=== PATIENT | female | born 1950 | race Caucasian/White ===

== ENCOUNTER → 2017-01-14 | Outpatient (CLI) | payer BC ==
--- OUTSIDE RECORDS SUMMARY | 2017-01-14 09:34 | XMS REPORT | Continuity of Care Document ---
Author Author [facility] Organization [facility] Address Unknown Phone Unavailable Allergies Medications Problems Date Dx Coded Attending Type Code Diagnosis Diagnosed By 10/19/2014 CARYN SHERIDAN DOLINE S Ot 244.9 10/19/2014 CARYN SHERIDAN DOLINE S Ot 272.4 10/19/2014 CARYN SHERIDAN DOLINE S Ot 780.79 10/19/2014 CARYN SHERIDAN DOLINE S Ot V76.12 04/29/2015 JAVIER CARLTON Ot 244.9 08/30/2015 Ot 719.46 08/30/2015 Ot V76.12 08/30/2015 Ot 244.9 08/30/2015 Ot 244.9 08/30/2015 Ot 272.4 08/30/2015 Ot 733.00 08/30/2015 Ot 780.79 08/30/2015 Ot V76.12 08/30/2015 Ot 244.9 08/30/2015 Ot 272.4 08/30/2015 Ot 780.79 08/30/2015 Ot 244.9 08/30/2015 Ot 272.4 08/30/2015 Ot V70.0 08/30/2015 Ot V72.62 08/30/2015 Ot V76.12 08/30/2015 ORENDCARYN RUBIN DOLINE S Ot 244.9 08/30/2015 ORENDER MARYSE KELLYNAYA S Ot 272.4 08/30/2015 ORENDMARYSE RUBIN DOQUELINE S Ot 780.79 08/30/2015 ORENDER MARYSE KELLYNAYA S Ot 244.9 08/30/2015 JOSINDMARYSE RUBIN DOQUELINE S Ot 272.4 08/30/2015 CARYN SHERIDAN DOLINE S Ot V76.12 08/30/2015 JOSINDCARYN RUBIN DOLINE S Ot 244.9 08/30/2015 JOSINDCARYN RUBIN DOLINE S Ot 272.4 08/30/2015 ORENDER DO, NAYA S Ot 244.9 08/30/2015 ORENDER DO, NAYA S Ot 272.4 08/30/2015 ORENDER DO, NAYA S Ot 780.79 08/30/2015 ORENDER DO, NAYA S Ot V76.12 08/30/2015 JAVIER CARLTON Ot 244.9 09/14/2015 ORENDER DO, NAYA S Ot E03.9 09/14/2015 ORENDER DO, NAYA S Ot E78.5 09/14/2015 ORENDER DO, NAYA S Ot Z12.31 09/15/2015 ORENDER DO, NAYA S Ot E03.9 09/15/2015 ORENDER DO, NAYA S Ot E78.5 09/15/2015 ORENDER DO, NAYA S Ot Z12.31 10/05/2015 ORENDER DO, NAYA S Ot E03.9 10/05/2015 ORENDER DO, NAYA S Ot E78.5 10/05/2015 ORENDER DO, NAYA S Ot Z12.31 01/18/2016 ORENDER DO, NAYA S Ot E03.9 01/18/2016 ORENDER DO, NAYA S Ot E78.2 01/18/2016 ORENDER DO, NAYA S Ot R53.1 01/30/2016 ORENDER DO, NAYA S Ot E03.9 01/30/2016 ORENDER DO, NAYA S Ot E78.2 01/30/2016 ORENDER DO, NAYA S Ot R53.1 07/11/2016 ORENDER DO, NAYA S Ot E03.9 HYPOTHYROIDISM, UNSPECIFIED 07/11/2016 ORENDER DO, NAYA S Ot E78.5 HYPERLIPIDEMIA, UNSPECIFIED 07/25/2016 ORENDER DO, NAYA S Ot E03.9 HYPOTHYROIDISM, UNSPECIFIED 07/25/2016 ORENDER DO, NAYA S Ot E78.5 HYPERLIPIDEMIA, UNSPECIFIED 09/10/2016 Ot 244.9 HYPOTHYROIDISM NOS 09/10/2016 Ot 244.9 HYPOTHYROIDISM NOS 09/10/2016 Ot 272.4 HYPERLIPIDEMIA NEC/NOS 09/10/2016 Ot 733.00 OSTEOPOROSIS NOS 09/10/2016 Ot 780.79 OTH MALAISE FATIGUE 09/10/2016 Ot V76.12 OTH SCREEN MAMMO-MALIGN NEOPLASM OF ALIZA 09/10/2016 Ot 244.9 HYPOTHYROIDISM NOS 09/10/2016 Ot 272.4 HYPERLIPIDEMIA NEC/NOS 09/10/2016 Ot 780.79 OTH MALAISE FATIGUE 09/10/2016 Ot 244.9 HYPOTHYROIDISM NOS 09/10/2016 Ot 272.4 HYPERLIPIDEMIA NEC/NOS 09/10/2016 Ot V70.0 ROUTINE MEDICAL EXAM 09/10/2016 Ot V72.62 LAB EXAM ORDERED PART OF A ROUTINE GE 09/10/2016 Ot V76.12 OTH SCREEN MAMMO-MALIGN NEOPLASM OF ALIZA 09/10/2016 ORENDER DO, NAYA S Ot 244.9 HYPOTHYROIDISM NOS 09/10/2016 ORENDER DO, NAYA S Ot 272.4 HYPERLIPIDEMIA NEC/NOS 09/10/2016 ORENDER DO, NAYA S Ot 780.79 OTH MALAISE FATIGUE 09/10/2016 ORENDER DO, NAYA S Ot 244.9 HYPOTHYROIDISM NOS 09/10/2016 ORENDER DO, NAYA S Ot 272.4 HYPERLIPIDEMIA NEC/NOS 09/10/2016 ORENDER DO, NAYA S Ot V76.12 OTH SCREEN MAMMO-MALIGN NEOPLASM OF ALIZA 09/10/2016 ORENDER DO, NAYA S Ot 244.9 HYPOTHYROIDISM NOS 09/10/2016 ORENDER DO, NAYA S Ot 272.4 HYPERLIPIDEMIA NEC/NOS 09/10/2016 ORENDER DO, NAYA S Ot 244.9 HYPOTHYROIDISM NOS 09/10/2016 ORENDER DO, NAYA S Ot 272.4 HYPERLIPIDEMIA NEC/NOS 09/10/2016 ORENDER DO, NAYA S Ot 780.79 OTH MALAISE FATIGUE 09/10/2016 ORENDER DO, NAYA S Ot V76.12 OTH SCREEN MAMMO-MALIGN NEOPLASM OF ALIZA 09/10/2016 JAVIER CARLTON Ot 244.9 HYPOTHYROIDISM NOS 09/10/2016 ORENDER DO, NAYA S Ot E03.9 HYPOTHYROIDISM, UNSPECIFIED 09/10/2016 ORENDER DO, NAYA S Ot E78.5 HYPERLIPIDEMIA, UNSPECIFIED 09/10/2016 JOSINDER DO, NAYA S Ot Z12.31 ENCNTR SCREEN MAMMOGRAM FOR MALIGNANT NE 09/10/2016 JOSINDER DO, NAYA S Ot E03.9 HYPOTHYROIDISM, UNSPECIFIED 09/10/2016 JOSINDER DO, NAYA S Ot E78.2 MIXED HYPERLIPIDEMIA 09/10/2016 JOSINDER DO, NAYA S Ot R53.1 WEAKNESS 09/10/2016 JOSINDER DO, NAYA S Ot E03.9 HYPOTHYROIDISM, UNSPECIFIED 09/10/2016 JOSINDER DO, NAYA S Ot E78.5 HYPERLIPIDEMIA, UNSPECIFIED 09/11/2016 JOSINDER DO, NAYA S Ot Z12.31 ENCNTR SCREEN MAMMOGRAM FOR MALIGNANT NE 09/21/2016 JOSINDER DO, NAYA S Ot Z12.31 ENCNTR SCREEN MAMMOGRAM FOR MALIGNANT NE 09/25/2016 Ot 244.9 HYPOTHYROIDISM NOS 09/25/2016 Ot 272.4 HYPERLIPIDEMIA NEC/NOS 09/25/2016 Ot 733.00 OSTEOPOROSIS NOS 09/25/2016 Ot 780.79 OTH MALAISE FATIGUE 09/25/2016 Ot V76.12 OTH SCREEN MAMMO-MALIGN NEOPLASM OF ALIZA 09/25/2016 Ot 244.9 HYPOTHYROIDISM NOS 09/25/2016 Ot 272.4 HYPERLIPIDEMIA NEC/NOS 09/25/2016 Ot 780.79 OTH MALAISE FATIGUE 09/25/2016 Ot 244.9 HYPOTHYROIDISM NOS 09/25/2016 Ot 272.4 HYPERLIPIDEMIA NEC/NOS 09/25/2016 Ot V70.0 ROUTINE MEDICAL EXAM 09/25/2016 Ot V72.62 LAB EXAM ORDERED PART OF A ROUTINE GE 09/25/2016 Ot V76.12 OTH SCREEN MAMMO-MALIGN NEOPLASM OF ALIZA 09/25/2016 JOSINDER DO, NAYA S Ot 244.9 HYPOTHYROIDISM NOS 09/25/2016 JOSINDER DO, NAYA S Ot 272.4 HYPERLIPIDEMIA NEC/NOS 09/25/2016 JOSINDER DO, NAYA S Ot 780.79 OTH MALAISE FATIGUE 09/25/2016 JOSINDER DO, NAYA S Ot 244.9 HYPOTHYROIDISM NOS 09/25/2016 ORENDER DO, NAYA S Ot 272.4 HYPERLIPIDEMIA NEC/NOS 09/25/2016 ORENDER DO, NAYA S Ot V76.12 OTH SCREEN MAMMO-MALIGN NEOPLASM OF ALIZA 09/25/2016 ORENDER DO, NAYA S Ot 244.9 HYPOTHYROIDISM NOS 09/25/2016 ORENDER DO, NAYA S Ot 272.4 HYPERLIPIDEMIA NEC/NOS 09/25/2016 ORENDER DO, NAYA S Ot 244.9 HYPOTHYROIDISM NOS 09/25/2016 ORENDER DO, NAYA S Ot 272.4 HYPERLIPIDEMIA NEC/NOS 09/25/2016 ORENDER DO, NAYA S Ot 780.79 OTH MALAISE FATIGUE 09/25/2016 ORENDER DO, NAYA S Ot V76.12 OTH SCREEN MAMMO-MALIGN NEOPLASM OF ALIZA 09/25/2016 JAVIER CARLTON Ot 244.9 HYPOTHYROIDISM NOS 10/31/2016 Ot 244.9 HYPOTHYROIDISM NOS 10/31/2016 Ot 272.4 HYPERLIPIDEMIA NEC/NOS 10/31/2016 Ot 733.00 OSTEOPOROSIS NOS 10/31/2016 Ot 780.79 OTH MALAISE FATIGUE 10/31/2016 Ot V76.12 OTH SCREEN MAMMO-MALIGN NEOPLASM OF ALIZA 10/31/2016 Ot 244.9 HYPOTHYROIDISM NOS 10/31/2016 Ot 272.4 HYPERLIPIDEMIA NEC/NOS 10/31/2016 Ot 780.79 OTH MALAISE FATIGUE 10/31/2016 Ot 244.9 HYPOTHYROIDISM NOS 10/31/2016 Ot 272.4 HYPERLIPIDEMIA NEC/NOS 10/31/2016 Ot V70.0 ROUTINE MEDICAL EXAM 10/31/2016 Ot V72.62 LAB EXAM ORDERED PART OF A ROUTINE GE 10/31/2016 Ot V76.12 OTH SCREEN MAMMO-MALIGN NEOPLASM OF ALIZA 10/31/2016 ORENDER DO, NAYA S Ot 244.9 HYPOTHYROIDISM NOS 10/31/2016 ORENDER DO, NAYA S Ot 272.4 HYPERLIPIDEMIA NEC/NOS 10/31/2016 ORENDER DO, NAYA S Ot 780.79 OTH MALAISE FATIGUE 10/31/2016 ORENDER DO, NAYA S Ot 244.9 HYPOTHYROIDISM NOS 10/31/2016 ORENDER DO, NAYA S Ot 272.4 HYPERLIPIDEMIA NEC/NOS 10/31/2016 ORENDER DO, NAYA S Ot V76.12 OTH SCREEN MAMMO-MALIGN NEOPLASM OF ALIZA 10/31/2016 ORENDER DO, NAYA S Ot 244.9 HYPOTHYROIDISM NOS 10/31/2016 ORENDER DO, NAYA S Ot 272.4 HYPERLIPIDEMIA NEC/NOS 10/31/2016 ORENDER DO, NAYA S Ot 244.9 HYPOTHYROIDISM NOS 10/31/2016 ORENDER DO, NAYA S Ot 272.4 HYPERLIPIDEMIA NEC/NOS 10/31/2016 ORENDER DO, NAYA S Ot 780.79 OTH MALAISE FATIGUE 10/31/2016 ORENDER DO, NAYA S Ot V76.12 OTH SCREEN MAMMO-MALIGN NEOPLASM OF ALIZA 10/31/2016 IRWINBRAVOJAVIER OROURKE LAURE Ot 244.9 HYPOTHYROIDISM NOS Procedures Results Test Result Range Complete blood count (CBC) with automated white blood cell (WBC) differential - 07/10/16 10:52 Blood leukocytes automated count (number/volume) 8.0 10*3/ uL 4.3-11.0 Blood erythrocytes automated count (number/volume) 4.84 10*6 /uL 4.35-5.85 Venous blood hemoglobin measurement (mass/volume) 15.1 g/dL 11.5-16.0 Blood hematocrit (volume fraction) 45 % 35-52 Automated erythrocyte mean corpuscular volume 93 [foz_us] 80-99 Automated erythrocyte mean corpuscular hemoglobin (mass per erythrocyte) 31 pg 25-34 Automated erythrocyte mean corpuscular hemoglobin concentration measurement ( mass/volume) 34 g/dL 32-36 Automated erythrocyte distribution width ratio 13.1 % 10.0-14.5 Automated blood platelet count (count/volume) 180 10*3/uL 130-400 Automated blood platelet mean volume measurement 10.5 [foz_ us] 7.4-10.4 Automated blood neutrophils/100 leukocytes 54 % 42-75 Automated blood lymphocytes/100 leukocytes 35 % 12-44 Blood monocytes/100 leukocytes 9 % 0-12 Automated blood eosinophils/100 leukocytes 2 % 0-10 Automated blood basophils/100 leukocytes 0 % 0-10 Blood neutrophils automated count (number/volume) 4.3 10*3 1.8-7.8 Blood lymphocytes automated count (number/volume) 2.8 10*3 1.0-4.0 Blood monocytes automated count (number/volume) 0.7 10*3 0.0-1.0 Automated eosinophil count 0.1 10*3/uL 0.0-0.3 Automated blood basophil count (count/volume) 0.0 10*3/uL 0.0-0.1 Comprehensive metabolic panel - 07/10/16 10:52 Serum or plasma sodium measurement (moles/volume) 141 mmol/ L 135-145 Serum or plasma potassium measurement (moles/volume) 4.0 mmol/L 3.6-5.0 Serum or plasma chloride measurement (moles/volume) 108 mmol /L 98-107 Carbon dioxide 22 mmol/L 21-32 Serum or plasma anion gap determination (moles/volume) 11 mmol/L 5-14 Serum or plasma urea nitrogen measurement (mass/volume) 14 mg/dL 7-18 Serum or plasma creatinine measurement (mass/volume) 0.72 mg /dL 0.60-1.30 Serum or plasma urea nitrogen/creatinine mass ratio 19 NRG Serum or plasma creatinine measurement with calculation of estimated glomerular filtration rate > NRG Serum or plasma glucose measurement (mass/volume) 104 mg/dL 70-105 Serum or plasma calcium measurement (mass/volume) 9.5 mg/dL 8.5-10.1 Serum or plasma total bilirubin measurement (mass/volume) 0.4 mg/dL 0.1-1.0 Serum or plasma alkaline phosphatase measurement (enzymatic activity/volume) 51 U/L 40-136 Serum or plasma aspartate aminotransferase measurement (enzymatic activity/ volume) 18 U/L 5-34 Serum or plasma alanine aminotransferase measurement (enzymatic activity/volume ) 15 U/L 0-55 Serum or plasma protein measurement (mass/volume) 7.1 g/dL 6.4-8.2 Serum or plasma albumin measurement (mass/volume) 4.3 g/dL 3.2-4.5 Lipid 1996 panel - 07/10/16 10:52 Serum or plasma triglyceride measurement (mass/volume) 106 mg/dL <150 Serum or plasma cholesterol measurement (mass/volume) 176 mg /dL < 200 Serum or plasma cholesterol in HDL measurement (mass/volume) 54 mg/dL 40-60 Cholesterol in LDL [mass/volume] in serum or plasma by direct assay 111 mg/dL 1-129 Serum or plasma cholesterol in VLDL measurement (mass/volume) 21 mg/dL 5-40 THYROID STIMULATING HORMONE - 07/10/16 10:52 THYROID STIMULATING HORMONE 1.08 u[iU]/mL 0.35-4.94 Serum or plasma thyroxine (T4) free measurement (mass/volume) - 07/10/16 10:52 Serum or plasma thyroxine (T4) free measurement (mass/volume) 1.15 ng/dL 0.70-1.48 Encounters ACCT No. Visit Date/Time Discharge Status Pt. Type Provider Facility Loc./Unit Complaint [id number] 09/12/2015 10:08:00 2014 23:59:59 CLS Outpatient ORENDER DO NAYA S [facility] RAD SCREENING,NUPOTHYRORDISM [id number] 04/13/2015 09:10:00 2014 23:59:59 CLS Outpatient JAVIER CARLTON [facility] LAB 244.9 [id number] 09/28/2014 09:53:00 2013 23:59:59 CLS Outpatient ORENDER DO NAYA S [facility] RAD SCREENING [id number] 04/12/2014 08:48:00 2013 23:59:59 CLS Outpatient ORENDER DO NAYA S [facility] LAB HYPERLIPADEMIA, HYPOTHRYOIDISM [id number] 09/14/2013 09:14:00 2012 23:59:59 CLS Outpatient ORENDER DO, NAYA S [facility] RAD SCREENING,ROUTINE EXAM, HYPTOHYROIDISM,HYPERLIPIDEM [id number] 03/26/2013 10:38:00 2012 23:59:59 CLS Outpatient ORENDER DO, NAYA S [facility] LAB UNSEPCIFICED HYPOTHYROIDISM [id number] 09/10/2016 08:48:00 ACT Outpatient ORENDER DO, NAYA S [facility] RAD SCREENING [id number] 07/10/2016 10:35:00 ACT Outpatient ORENDER DO NAYA S [facility] LAB HYPOTHYROIDISM,HYPERLIPIDEMIA [id number] 01/17/2016 10:44:00 ACT Outpatient ORENDER DO NAYA S [facility] [id number] 09/11/2012 13:39:00 Document Registration [id number] 03/20/2012 09:03:00 Document Registration [id number] 09/20/2011 08:57:00 Document Registration [id number] 03/28/2011 08:17:00 Document Registration [id number] 09/14/2010 09:45:00 Document Registration
[2017-01-14 10:13] LABS: ALANINE AMINOTRANSFERASE 18 U/L (0-55); ALBUMIN 4.3 G/DL (3.2-4.5); ANION GAP 11 MMOL/L (5-14); ASPARTATE AMINO TRANSFERASE 18 U/L (5-34); BILIRUBIN,TOTAL 0.4 MG/DL (0.1-1.0); BLOOD UREA NITROGEN 18 MG/DL (7-18); BUN/CREATININE RATIO 23; CALCIUM 9.4 MG/DL (8.5-10.1); CARBON DIOXIDE 23 MMOL/L (21-32); CHLORIDE 108 MMOL/L (98-107); CHOLESTEROL 191 MG/DL (< 200); CREATININE SERUM 0.77 MG/DL (0.60-1.30); DIRECT LDL 120 MG/DL (1-129); GFR ESTIMATED > 60; GLUCOSE 123 MG/DL (70-105); POTASSIUM 4.4 MMOL/L (3.6-5.0); SODIUM 142 MMOL/L (135-145); TOTAL PROTEIN 7.3 G/DL (6.4-8.2); TRIGLYCERIDES 131 MG/DL (<150); VLDL CHOLESTEROL 26 MG/DL (5-40)
[2017-01-14 10:33] LABS: THYROID STIMULATING HORMONE 1.03 UIU/ML (0.35-4.94)
== END ==
LOC: LAB 09:30
PROVIDERS: ATTEND Family Medicine
DX: E03.9 Hypothyroidism, unspecified (principal); E78.2 Mixed hyperlipidemia
CPT/HCPCS: 36415; 80053; 80061; 84439; 84443

== ENCOUNTER → 2017-01-23 | Outpatient (CLI) | payer BC | LOC: LAB 11:56 | PROVIDERS: ATTEND Family Medicine | DX: R73.9 Hyperglycemia, unspecified (principal); E55.9 Vitamin D deficiency, unspecified; M25.50 Pain in unspecified joint | CPT/HCPCS: 36415; 82306; 83036; 84550; 85652 ==

== ENCOUNTER → 2017-07-25 | Outpatient (CLI) | payer MEDICARE, OTHER ==
[2017-07-25 11:20] LABS: BASOPHILS % (AUTO) 0 % (0-10); EOSINOPHILS # (AUTO) 0.2 10^3/uL (0.0-0.3); EOSINOPHILS % (AUTO) 2 % (0-10); LYMPHOCYTES # (AUTO) 2.8 X 10^3 (1.0-4.0); LYMPHOCYTES % (AUTO) 29 % (12-44); MEAN CORPUSCULAR HEMOGLOBIN 31 PG (25-34); MEAN CORPUSCULAR HGB CONC 33 G/DL (32-36); MEAN CORPUSCULAR VOLUME 94 FL (80-99); MEAN PLATELET VOLUME 10.6 FL (7.4-10.4); MONOCYTES # (AUTO) 0.8 X 10^3 (0.0-1.0); MONOCYTES % (AUTO) 8 % (0-12); NEUTROPHILS # (AUTO) 5.9 X 10^3 (1.8-7.8); NEUTROPHILS % (AUTO) 61 % (42-75); PLATELET COUNT 171 10^3/uL (130-400); RED BLOOD COUNT 5.01 10^6/uL (4.35-5.85); RED CELL DISTRIBUTION WIDTH 13.2 % (10.0-14.5); WHITE BLOOD COUNT 9.6 10^3/uL (4.3-11.0)
[2017-07-25 11:38] LABS: ALANINE AMINOTRANSFERASE 21 U/L (0-55); ALBUMIN 4.2 GM/DL (3.2-4.5); ANION GAP 12 MMOL/L (5-14); ASPARTATE AMINO TRANSFERASE 20 U/L (5-34); BILIRUBIN,TOTAL 0.5 MG/DL (0.1-1.0); BLOOD UREA NITROGEN 17 MG/DL (7-18); BUN/CREATININE RATIO 23; CARBON DIOXIDE 22 MMOL/L (21-32); CHLORIDE 107 MMOL/L (98-107); CHOLESTEROL 175 MG/DL (< 200); CREATININE SERUM 0.74 MG/DL (0.60-1.30); DIRECT LDL 99 MG/DL (1-129); GFR ESTIMATED > 60; GLUCOSE 125 MG/DL (70-105); POTASSIUM 4.5 MMOL/L (3.6-5.0); SODIUM 141 MMOL/L (135-145); TOTAL PROTEIN 7.8 GM/DL (6.4-8.2); TRIGLYCERIDES 118 MG/DL (<150); VLDL CHOLESTEROL 24 MG/DL (5-40)
[2017-07-25 12:00] LABS: THYROID STIMULATING HORMONE 0.22 UIU/ML (0.35-4.94)
== END ==
LOC: LAB 10:44
PROVIDERS: ATTEND Family Medicine
DX: E03.9 Hypothyroidism, unspecified; R73.9 Hyperglycemia, unspecified; E55.0 Rickets, active; E78.2 Mixed hyperlipidemia
CPT/HCPCS: 36415; 80053; 80061; 82306; 83036; 84439; 84443; 85025

== ENCOUNTER → 2017-10-14 | Outpatient (CLI) | payer MEDICARE, OTHER ==
[2017-10-14 11:03] LABS: ANION GAP 9 MMOL/L (5-14); BLOOD UREA NITROGEN 20 MG/DL (7-18); BUN/CREATININE RATIO 27; CALCIUM 10.1 MG/DL (8.5-10.1); CARBON DIOXIDE 27 MMOL/L (21-32); CHLORIDE 106 MMOL/L (98-107); CREATININE SERUM 0.74 MG/DL (0.60-1.30); GFR ESTIMATED > 60; GLUCOSE 102 MG/DL (70-105); POTASSIUM 4.3 MMOL/L (3.6-5.0); SODIUM 142 MMOL/L (135-145)
[2017-10-14 11:25] LABS: THYROID STIMULATING HORMONE 1.14 UIU/ML (0.35-4.94)
== END ==
LOC: LAB 10:27
PROVIDERS: ATTEND Family Medicine
DX: E78.2 Mixed hyperlipidemia (principal); R73.9 Hyperglycemia, unspecified; E03.9 Hypothyroidism, unspecified
CPT/HCPCS: 36415; 80048; 83036; 84439; 84443

== ENCOUNTER → 2017-10-22 | Outpatient (CLI) | payer MEDICARE, OTHER ==
--- NOTE | 2017-10-22 11:33 | Diagnostic Imaging Report ---
Two views of the left hip. INDICATION: Left hip pain. FINDINGS: There is severe osteoarthritis changes with complete loss of cartilage along the lateral aspect of the hip joint with [id number] appearance and the reactive sclerosis and cystic changes seen. No fracture or dislocation. No radiopaque foreign body. IMPRESSION: Severe left hip osteoarthritis. Dictated by: Dictated on workstation # [id number]
== END ==
LOC: RAD 09:39
PROVIDERS: ATTEND Family Medicine
DX: M16.12 Unilateral primary osteoarthritis, left hip (principal)
CPT/HCPCS: 73502

== ENCOUNTER → 2018-01-20 | Outpatient (CLI) | payer MEDICARE, OTHER ==
[2018-01-20 12:11] LABS: ALANINE AMINOTRANSFERASE 14 U/L (0-55); ALBUMIN 4.3 GM/DL (3.2-4.5); ALKALINE PHOSPHATASE 68 U/L (40-136); BILIRUBIN,TOTAL 0.4 MG/DL (0.1-1.0); BUN/CREATININE RATIO 26; CALCIUM 10.2 MG/DL (8.5-10.1); CARBON DIOXIDE 24 MMOL/L (21-32); CHLORIDE 103 MMOL/L (98-107); CHOLESTEROL 164 MG/DL (< 200); CREATININE SERUM 0.78 MG/DL (0.60-1.30); GFR ESTIMATED > 60; GLUCOSE 105 MG/DL (70-105); HDL CHOLESTEROL 57 MG/DL (40-60); POTASSIUM 4.6 MMOL/L (3.6-5.0); SODIUM 138 MMOL/L (135-145); TOTAL PROTEIN 7.8 GM/DL (6.4-8.2); TRIGLYCERIDES 117 MG/DL (<150); VLDL CHOLESTEROL 23 MG/DL (5-40)
== END ==
LOC: LAB 11:01
PROVIDERS: ATTEND Family Medicine
DX: E78.2 Mixed hyperlipidemia (principal); R73.9 Hyperglycemia, unspecified
CPT/HCPCS: 36415; 80053; 80061; 83036

== ENCOUNTER → 2018-04-21 | Outpatient (CLI) | payer MEDICARE, OTHER ==
[2018-04-21 10:53] LABS: BASOPHILS % (AUTO) 0 % (0-10); EOSINOPHILS # (AUTO) 0.2 10^3/uL (0.0-0.3); EOSINOPHILS % (AUTO) 2 % (0-10); HEMATOCRIT 47 % (35-52); HEMOGLOBIN 15.9 G/DL (11.5-16.0); LYMPHOCYTES # (AUTO) 2.9 X 10^3 (1.0-4.0); LYMPHOCYTES % (AUTO) 35 % (12-44); MEAN CORPUSCULAR HEMOGLOBIN 31 PG (25-34); MEAN CORPUSCULAR HGB CONC 34 G/DL (32-36); MEAN CORPUSCULAR VOLUME 91 FL (80-99); MEAN PLATELET VOLUME 10.8 FL (7.4-10.4); MONOCYTES # (AUTO) 0.7 X 10^3 (0.0-1.0); MONOCYTES % (AUTO) 8 % (0-12); NEUTROPHILS # (AUTO) 4.5 X 10^3 (1.8-7.8); NEUTROPHILS % (AUTO) 55 % (42-75); PLATELET COUNT 180 10^3/uL (130-400); RED BLOOD COUNT 5.12 10^6/uL (4.35-5.85); RED CELL DISTRIBUTION WIDTH 14.2 % (10.0-14.5); WHITE BLOOD COUNT 8.3 10^3/uL (4.3-11.0)
[2018-04-21 11:15] LABS: ALANINE AMINOTRANSFERASE 17 U/L (0-55); ALBUMIN 4.4 GM/DL (3.2-4.5); ALKALINE PHOSPHATASE 75 U/L (40-136); BILIRUBIN,TOTAL 0.5 MG/DL (0.1-1.0); BUN/CREATININE RATIO 20; CALCIUM 10.2 MG/DL (8.5-10.1); CARBON DIOXIDE 22 MMOL/L (21-32); CHLORIDE 107 MMOL/L (98-107); CREATININE SERUM 0.74 MG/DL (0.60-1.30); GFR ESTIMATED > 60; GLUCOSE 155 MG/DL (70-105); POTASSIUM 4.3 MMOL/L (3.6-5.0); SODIUM 140 MMOL/L (135-145); TOTAL PROTEIN 7.8 GM/DL (6.4-8.2)
== END ==
LOC: LAB 10:26
PROVIDERS: ATTEND Family Medicine
DX: E03.9 Hypothyroidism, unspecified (principal); R73.9 Hyperglycemia, unspecified; I10 Essential (primary) hypertension; E78.5 Hyperlipidemia, unspecified
CPT/HCPCS: 36415; 80053; 83036; 84443; 85025

== ENCOUNTER → 2018-07-21 | Outpatient (CLI) | payer MEDICARE, OTHER ==
[2018-07-21 11:57] LABS: ALANINE AMINOTRANSFERASE 17 U/L (0-55); ALBUMIN 4.3 GM/DL (3.2-4.5); ALKALINE PHOSPHATASE 56 U/L (40-136); BILIRUBIN,TOTAL 0.4 MG/DL (0.1-1.0); BUN/CREATININE RATIO 18; CALCIUM 10.1 MG/DL (8.5-10.1); CARBON DIOXIDE 24 MMOL/L (21-32); CHLORIDE 106 MMOL/L (98-107); CREATININE SERUM 0.76 MG/DL (0.60-1.30); GFR ESTIMATED > 60; GLUCOSE 119 MG/DL (70-105); POTASSIUM 4.2 MMOL/L (3.6-5.0); SODIUM 139 MMOL/L (135-145); TOTAL PROTEIN 7.6 GM/DL (6.4-8.2)
== END ==
LOC: LAB 10:55
PROVIDERS: ATTEND Family Medicine
DX: E11.65 Type 2 diabetes mellitus with hyperglycemia (principal)
CPT/HCPCS: 36415; 80053; 83036

== ENCOUNTER → 2018-09-18 | Outpatient (CLI) | payer MEDICARE, OTHER ==
--- NOTE | 2018-09-18 12:43 | Diagnostic Imaging Report ---
INDICATION: Routine screening. COMPARISON: Comparison is made with prior mammograms from 09/11/2017 and 09/10/2016. TECHNIQUE: 2D and 3D bilateral screening mammography was performed with computer-aided detection (CAD) system. FINDINGS: Scattered fibroglandular densities are identified bilaterally. The parenchymal pattern is stable. Intraparenchymal lymph node in the outer left breast is stable. There are benign calcifications bilaterally. No new mass or malignant appearing microcalcifications are seen. The axillae are unremarkable. IMPRESSION: No mammographic features suspicious for malignancy are identified. ACR BI-RADS Category 2: Benign findings. Result letter will be mailed to the patient. Note: At least 10% of breast cancer is not imaged by mammography. Dictated by: Dictated on workstation # [id number]
== END ==
LOC: RAD 10:24
PROVIDERS: ATTEND Family Medicine
DX: Z12.31 Encounter for screening mammogram for malignant neoplasm of breast (principal)
CPT/HCPCS: 77067

== ENCOUNTER → 2018-10-22 | Outpatient (CLI) | payer MEDICARE, OTHER ==
[2018-10-22 10:59] LABS: ALANINE AMINOTRANSFERASE 19 U/L (0-55); ALBUMIN 4.4 GM/DL (3.2-4.5); ALKALINE PHOSPHATASE 61 U/L (40-136); BILIRUBIN,TOTAL 0.5 MG/DL (0.1-1.0); BUN/CREATININE RATIO 21; CARBON DIOXIDE 23 MMOL/L (21-32); CHLORIDE 107 MMOL/L (98-107); CHOLESTEROL 155 MG/DL (< 200); GFR ESTIMATED > 60; GLUCOSE 112 MG/DL (70-105); HDL CHOLESTEROL 59 MG/DL (40-60); SODIUM 142 MMOL/L (135-145); TOTAL PROTEIN 7.6 GM/DL (6.4-8.2); TRIGLYCERIDES 95 MG/DL (<150); VLDL CHOLESTEROL 19 MG/DL (5-40)
[2018-10-22 11:21] LABS: FREE T4 (FREE THYROXINE) 1.21 NG/DL (0.70-1.48)
== END ==
LOC: LAB 10:23
PROVIDERS: ATTEND Family Medicine
DX: E11.9 Type 2 diabetes mellitus without complications (principal); E78.5 Hyperlipidemia, unspecified
CPT/HCPCS: 36415; 80053; 80061; 83036; 84439; 84443

== ENCOUNTER → 2019-01-19 | Outpatient (CLI) | payer MEDICARE, OTHER ==
[2019-01-19 12:06] LABS: ALANINE AMINOTRANSFERASE 13 U/L (0-55); ALBUMIN 4.4 GM/DL (3.2-4.5); ALKALINE PHOSPHATASE 57 U/L (40-136); BILIRUBIN,TOTAL 0.5 MG/DL (0.1-1.0); BUN/CREATININE RATIO 25; CALCIUM 9.6 MG/DL (8.5-10.1); CARBON DIOXIDE 22 MMOL/L (21-32); CHLORIDE 107 MMOL/L (98-107); CREATININE SERUM 0.77 MG/DL (0.60-1.30); GFR ESTIMATED > 60; GLUCOSE 110 MG/DL (70-105); POTASSIUM 4.5 MMOL/L (3.6-5.0); SODIUM 138 MMOL/L (135-145); TOTAL PROTEIN 7.4 GM/DL (6.4-8.2)
== END ==
LOC: LAB 11:15
PROVIDERS: ATTEND Family Medicine
DX: E11.65 Type 2 diabetes mellitus with hyperglycemia (principal); E78.2 Mixed hyperlipidemia
CPT/HCPCS: 36415; 80053; 83036

== ENCOUNTER → 2019-04-27 | Outpatient (CLI) | payer MEDICARE, OTHER ==
[2019-04-27 11:33] LABS: ALANINE AMINOTRANSFERASE 14 U/L (0-55); ALBUMIN 4.3 GM/DL (3.2-4.5); ALKALINE PHOSPHATASE 53 U/L (40-136); BILIRUBIN,TOTAL 0.5 MG/DL (0.1-1.0); BUN/CREATININE RATIO 21; CARBON DIOXIDE 24 MMOL/L (21-32); CHLORIDE 106 MMOL/L (98-107); CREATININE SERUM 0.77 MG/DL (0.60-1.30); GFR ESTIMATED > 60; GLUCOSE 103 MG/DL (70-105); POTASSIUM 4.3 MMOL/L (3.6-5.0); SODIUM 140 MMOL/L (135-145); TOTAL PROTEIN 7.2 GM/DL (6.4-8.2)
== END ==
LOC: LAB 10:53
PROVIDERS: ATTEND Family Medicine
DX: E11.65 Type 2 diabetes mellitus with hyperglycemia (principal)
CPT/HCPCS: 36415; 80053; 83036

== ENCOUNTER → 2019-08-17 | Outpatient (CLI) | payer MEDICARE, OTHER ==
[2019-08-17 09:31] LABS: ALANINE AMINOTRANSFERASE 14 U/L (0-55); ALBUMIN 4.3 GM/DL (3.2-4.5); ALKALINE PHOSPHATASE 68 U/L (40-136); BILIRUBIN,TOTAL 0.4 MG/DL (0.1-1.0); BUN/CREATININE RATIO 22; CALCIUM 10.1 MG/DL (8.5-10.1); CARBON DIOXIDE 23 MMOL/L (21-32); CHLORIDE 106 MMOL/L (98-107); CHOLESTEROL 173 MG/DL (< 200); CREATININE SERUM 0.81 MG/DL (0.60-1.30); GFR ESTIMATED > 60; GLUCOSE 101 MG/DL (70-105); HDL CHOLESTEROL 63 MG/DL (40-60); POTASSIUM 4.3 MMOL/L (3.6-5.0); SODIUM 142 MMOL/L (135-145); TOTAL PROTEIN 7.6 GM/DL (6.4-8.2); TRIGLYCERIDES 97 MG/DL (<150); VLDL CHOLESTEROL 19 MG/DL (5-40)
== END ==
LOC: LAB 08:56
PROVIDERS: ATTEND Family Medicine
DX: E11.9 Type 2 diabetes mellitus without complications (principal); E78.2 Mixed hyperlipidemia
CPT/HCPCS: 36415; 80053; 80061; 83036

== ENCOUNTER → 2019-09-23 | Outpatient (CLI) | payer MEDICARE, OTHER ==
--- NOTE | 2019-09-23 11:44 | Diagnostic Imaging Report ---
INDICATION: Routine screening. COMPARISON: Comparison is made with prior mammogram from 09/18/2018 and 09/11/2017. 2-D and 3-D bilateral screening mammography was performed. The current study was also evaluated with a Computer Aided Detection (CAD) system. 3-D tomosynthesis was also performed and reviewed. FINDINGS: Scattered fibroglandular densities are identified bilaterally. The parenchymal pattern is stable. No mass or malignant-appearing microcalcifications are seen. There are benign calcifications in both breasts. Axillae are unremarkable. IMPRESSION: No mammographic features suspicious for malignancy are identified. ACR BI-RADS Category 2: Benign findings. Result letter will be mailed to the patient. Note: At least 10% of breast cancer is not imaged by mammography. Dictated by: Dictated on workstation # [id number]
== END ==
LOC: RAD 10:38
PROVIDERS: ATTEND Family Medicine
DX: Z12.31 Encounter for screening mammogram for malignant neoplasm of breast (principal)
CPT/HCPCS: 77067

== ENCOUNTER → 2019-11-26 | Outpatient (CLI) | payer MEDICARE, OTHER ==
[2019-11-26 09:56] LABS: BASOPHILS % (AUTO) 0 % (0-10); EOSINOPHILS # (AUTO) 0.1 10^3/uL (0.0-0.3); EOSINOPHILS % (AUTO) 2 % (0-10); HEMATOCRIT 47 % (35-52); HEMOGLOBIN 15.4 G/DL (11.5-16.0); LYMPHOCYTES # (AUTO) 1.9 X 10^3 (1.0-4.0); LYMPHOCYTES % (AUTO) 28 % (12-44); MEAN CORPUSCULAR HEMOGLOBIN 31 PG (25-34); MEAN CORPUSCULAR HGB CONC 33 G/DL (32-36); MEAN CORPUSCULAR VOLUME 93 FL (80-99); MEAN PLATELET VOLUME 10.6 FL (7.4-10.4); MONOCYTES # (AUTO) 0.6 X 10^3 (0.0-1.0); MONOCYTES % (AUTO) 9 % (0-12); NEUTROPHILS # (AUTO) 4.1 X 10^3 (1.8-7.8); NEUTROPHILS % (AUTO) 61 % (42-75); PLATELET COUNT 173 10^3/uL (130-400); RED CELL DISTRIBUTION WIDTH 13.8 % (10.0-14.5); WHITE BLOOD COUNT 6.8 10^3/uL (4.3-11.0)
[2019-11-26 10:16] LABS: ALANINE AMINOTRANSFERASE 12 U/L (0-55); ALBUMIN 4.4 GM/DL (3.2-4.5); ALKALINE PHOSPHATASE 55 U/L (40-136); BILIRUBIN,TOTAL 0.4 MG/DL (0.1-1.0); BUN/CREATININE RATIO 22; CARBON DIOXIDE 22 MMOL/L (21-32); CHLORIDE 109 MMOL/L (98-107); CHOLESTEROL 138 MG/DL (< 200); CREATININE SERUM 0.81 MG/DL (0.60-1.30); GFR ESTIMATED > 60; GLUCOSE 108 MG/DL (70-105); HDL CHOLESTEROL 57 MG/DL (40-60); POTASSIUM 4.5 MMOL/L (3.6-5.0); SODIUM 142 MMOL/L (135-145); TOTAL PROTEIN 7.4 GM/DL (6.4-8.2); TRIGLYCERIDES 81 MG/DL (<150); VLDL CHOLESTEROL 16 MG/DL (5-40)
[2019-11-26 10:35] LABS: FREE T4 (FREE THYROXINE) 1.21 NG/DL (0.70-1.48)
== END ==
LOC: LAB 09:31
PROVIDERS: ATTEND Family Medicine
DX: E11.65 Type 2 diabetes mellitus with hyperglycemia (principal); E03.9 Hypothyroidism, unspecified; E78.2 Mixed hyperlipidemia
CPT/HCPCS: 36415; 80053; 80061; 83036; 84439; 84443; 85025

== ENCOUNTER → 2020-03-02 | Outpatient (CLI) | payer MEDICARE, OTHER ==
[2020-03-02 10:46] LABS: BASOPHILS % (AUTO) 0 % (0-10); EOSINOPHILS # (AUTO) 0.1 10^3/uL (0.0-0.3); EOSINOPHILS % (AUTO) 1 % (0-10); HEMATOCRIT 47 % (35-52); HEMOGLOBIN 15.4 G/DL (11.5-16.0); LYMPHOCYTES # (AUTO) 1.9 X 10^3 (1.0-4.0); LYMPHOCYTES % (AUTO) 27 % (12-44); MEAN CORPUSCULAR HEMOGLOBIN 31 PG (25-34); MEAN CORPUSCULAR HGB CONC 33 G/DL (32-36); MEAN CORPUSCULAR VOLUME 94 FL (80-99); MEAN PLATELET VOLUME 10.7 FL (7.4-10.4); MONOCYTES # (AUTO) 0.6 X 10^3 (0.0-1.0); MONOCYTES % (AUTO) 9 % (0-12); NEUTROPHILS # (AUTO) 4.2 X 10^3 (1.8-7.8); NEUTROPHILS % (AUTO) 63 % (42-75); PLATELET COUNT 173 10^3/uL (130-400); RED CELL DISTRIBUTION WIDTH 13.3 % (10.0-14.5); WHITE BLOOD COUNT 6.8 10^3/uL (4.3-11.0)
[2020-03-02 11:08] LABS: ALANINE AMINOTRANSFERASE 12 U/L (0-55); ALBUMIN 4.2 GM/DL (3.2-4.5); ALKALINE PHOSPHATASE 61 U/L (40-136); BILIRUBIN,TOTAL 0.5 MG/DL (0.1-1.0); BUN/CREATININE RATIO 19; CARBON DIOXIDE 25 MMOL/L (21-32); CHLORIDE 106 MMOL/L (98-107); CHOLESTEROL 168 MG/DL (< 200); CREATININE SERUM 0.89 MG/DL (0.60-1.30); GFR ESTIMATED > 60; GLUCOSE 115 MG/DL (70-105); HDL CHOLESTEROL 59 MG/DL (40-60); POTASSIUM 4.8 MMOL/L (3.6-5.0); SODIUM 140 MMOL/L (135-145); TOTAL PROTEIN 7.4 GM/DL (6.4-8.2); TRIGLYCERIDES 109 MG/DL (<150); VLDL CHOLESTEROL 22 MG/DL (5-40)
== END ==
LOC: LAB 10:31
PROVIDERS: ATTEND Family Medicine
DX: E11.9 Type 2 diabetes mellitus without complications (principal); E03.9 Hypothyroidism, unspecified; E78.2 Mixed hyperlipidemia
CPT/HCPCS: 36415; 80053; 80061; 83036; 84439; 84443; 85025

== ENCOUNTER → 2020-06-10 | Outpatient (CLI) | payer MEDICARE, OTHER ==
[2020-06-10 12:03] LABS: ALANINE AMINOTRANSFERASE 12 U/L (0-55); ALBUMIN 4.5 GM/DL (3.2-4.5); ALKALINE PHOSPHATASE 60 U/L (40-136); BILIRUBIN,TOTAL 0.5 MG/DL (0.1-1.0); BUN/CREATININE RATIO 24; CALCIUM 9.9 MG/DL (8.5-10.1); CARBON DIOXIDE 21 MMOL/L (21-32); CHLORIDE 106 MMOL/L (98-107); GFR ESTIMATED > 60; GLUCOSE 97 MG/DL (70-105); POTASSIUM 4.4 MMOL/L (3.6-5.0); SODIUM 142 MMOL/L (135-145); TOTAL PROTEIN 7.9 GM/DL (6.4-8.2)
== END ==
LOC: LAB 11:02
PROVIDERS: ATTEND Nurse Practitioner Family
DX: E78.2 Mixed hyperlipidemia (principal); E03.9 Hypothyroidism, unspecified
CPT/HCPCS: 36415; 80053; 83036

== ENCOUNTER → 2020-09-09 | Outpatient (CLI) | payer MEDICARE, OTHER ==
[2020-09-09 10:47] LABS: ALANINE AMINOTRANSFERASE 16 U/L (0-55); ALBUMIN 4.4 GM/DL (3.2-4.5); ALKALINE PHOSPHATASE 64 U/L (40-136); BILIRUBIN,TOTAL 0.5 MG/DL (0.1-1.0); BUN/CREATININE RATIO 25; CARBON DIOXIDE 23 MMOL/L (21-32); CHLORIDE 104 MMOL/L (98-107); CREATININE SERUM 0.92 MG/DL (0.60-1.30); GFR ESTIMATED > 60; GLUCOSE 98 MG/DL (70-105); POTASSIUM 4.4 MMOL/L (3.6-5.0); SODIUM 140 MMOL/L (135-145); TOTAL PROTEIN 7.8 GM/DL (6.4-8.2)
== END ==
LOC: LAB 10:07
PROVIDERS: ATTEND Family Medicine
DX: E11.9 Type 2 diabetes mellitus without complications (principal)
CPT/HCPCS: 36415; 80053; 83036

== ENCOUNTER → 2020-09-26 | Outpatient (CLI) | payer MEDICARE, OTHER ==
--- NOTE | 2020-09-26 14:04 | Diagnostic Imaging Report ---
INDICATION: Screening. TECHNIQUE: The current study was also evaluated with a Computer Aided Detection (CAD) system. 3-D Tomographic imaging was also performed. COMPARISON: 09/23/2019, 09/18/2018, and 09/11/2017. FINDINGS: There are scattered fibroglandular densities bilaterally. There is a nodular density in the upper-outer left breast which appears slightly more prominent. There are scattered benign type calcifications. There is no other dominant mass, spiculated lesion, or suspicious calcification identified. The skin, nipples, and axillae are unremarkable IMPRESSION: There is a focal nodular density in the upper-outer aspect of the left breast. This appears slightly more prominent on today's examination. Further evaluation with spot compression views and ultrasound are recommended. ACR BI-RADS Category 0: Incomplete. (Needs additional imaging evaluation). Result letter will be mailed to the patient. Note: At least 10% of breast cancer is not imaged by mammography. Dictated by: Dictated on workstation # [id number]
== END ==
LOC: RAD 11:30
PROVIDERS: ATTEND Family Medicine
DX: Z12.31 Encounter for screening mammogram for malignant neoplasm of breast (principal)
CPT/HCPCS: 77063; 77067

== ENCOUNTER → 2020-10-06 | Outpatient (CLI) | payer MEDICARE, OTHER ==
--- NOTE | 2020-10-06 13:42 | Diagnostic Imaging Report ---
EXAM: Diagnostic left mammogram INDICATION: Abnormal screening mammogram The screening mammogram performed on 09/26/2020 noted a small focal asymmetry in the upper outer aspect of the left breast. This did seem somewhat more prominent than on the prior exam of 09/23/2019. The compression views of this area showed it has a generally benign appearance. Furthermore, in reviewing the exams as far back as 2014, I do feel that this finding has been present and has not changed significantly. Consequently, I do suspect this is a benign process. Even so, I would recommend that ultrasound be performed to better characterize this finding. IMPRESSION: Ultrasound would be recommended for further evaluation of the benign-appearing nodular asymmetry in the upper outer aspect of the left breast. ACR BI-RADS Category 0: Incomplete. (Needs additional imaging evaluation). Result letter will be mailed to the patient. Note: At least 10% of breast cancer is not imaged by mammography. Dictated by: Dictated on workstation # [id number]
--- NOTE | 2020-10-06 15:07 | Diagnostic Imaging Report ---
Ultrasound of the left breast, limited. INDICATION: Abnormal mammogram The screening mammogram performed on 09/26/2020 suggested a focal nodular asymmetry in the upper outer quadrant of the left breast. This did seem slightly larger than noted on the previous exam of 09/23/2019. The diagnostic mammogram performed prior to this study suggested that this asymmetry had a generally benign appearance. On this exam, in the 1 o'clock position of the breast, approximately 14 cm from the nipple, there is a 7 x 4 x 5 mm lobulated hypoechoic lesion with a small hyperechoic central nidus. I suspect this does correspond to the asymmetry seen on the mammogram and most likely this is a small lymph node. I do feel that this is a benign process. Furthermore, in reviewing the previous mammograms as far back as 2014, this finding does not appear to have changed adversely. IMPRESSION: 1. The nodular asymmetry seen in the upper outer aspect of the left breast is felt to represent a benign lymph node. There is no evidence of malignancy. 2. The patient should have her annual bilateral screening mammogram on schedule in September 2021. ACR BI-RADS Category 2: Benign findings. Result letter will be mailed to the patient. Note: At least 10% of breast cancer is not imaged by mammography. Dictated by: Dictated on workstation # [id number]
== END ==
LOC: RAD 13:15
PROVIDERS: ATTEND Family Medicine
DX: R92.8 Other abnormal and inconclusive findings on diagnostic imaging of breast (principal); N64.89 Other specified disorders of breast
CPT/HCPCS: 76642; 77065; G0279

== ENCOUNTER → 2020-12-30 | Outpatient (CLI) | payer MEDICARE, OTHER ==
[2020-12-30 10:35] LABS: ALBUMIN 4.4 GM/DL (3.2-4.5); BILIRUBIN,TOTAL 0.4 MG/DL (0.1-1.0); CALCIUM 9.9 MG/DL (8.5-10.1); CREATININE SERUM 1.01 MG/DL (0.60-1.30); TOTAL PROTEIN 7.7 GM/DL (6.4-8.2)
== END ==
LOC: LAB 09:55
PROVIDERS: ATTEND Nurse Practitioner Family
DX: E11.9 Type 2 diabetes mellitus without complications (principal)
CPT/HCPCS: 36415; 80053; 82043; 83036

== ENCOUNTER → 2021-03-31 | Outpatient (CLI) | payer MEDICARE, OTHER ==
[2021-03-31 10:38] LABS: ALANINE AMINOTRANSFERASE 10 U/L (0-55); ALBUMIN 4.2 GM/DL (3.2-4.5); ALKALINE PHOSPHATASE 60 U/L (40-136); BILIRUBIN,TOTAL 0.4 MG/DL (0.1-1.0); BUN/CREATININE RATIO 20; CALCIUM 10.2 MG/DL (8.5-10.1); CARBON DIOXIDE 26 MMOL/L (21-32); CHLORIDE 102 MMOL/L (98-107); CREATININE SERUM 0.79 MG/DL (0.60-1.30); GFR ESTIMATED > 60; GLUCOSE 105 MG/DL (70-105); POTASSIUM 4.5 MMOL/L (3.6-5.0); SODIUM 138 MMOL/L (135-145); TOTAL PROTEIN 7.5 GM/DL (6.4-8.2)
== END ==
LOC: LAB 09:55
PROVIDERS: ATTEND Family Medicine
DX: E11.9 Type 2 diabetes mellitus without complications (principal)
CPT/HCPCS: 36415; 80053; 83036

== ENCOUNTER 2023-08-21 06:06 | Outpatient (CLI) | payer MEDICARE ==
[~2023-08-21] VITALS: Ht 160 cm; Wt 77.6 kg
[2023-08-26] MEDS ORDERED: LEVO25CA4 PO (08:44)
[2023-08-26] MEDS ORDERED: DIVA-21 PO (08:44)
[2023-08-26] MEDS ORDERED: ONDA-105 PO (08:44)
[2023-08-26] MEDS ORDERED: FLUO40CA PO (08:44)
[2023-08-26] MEDS ORDERED: DIVA250T PO (08:44)
[2023-08-26] MEDS ORDERED: MELA1TAB27 PO (08:44)
[2023-08-26] MEDS ORDERED: NAPR500T8 PO (08:44)
[2023-08-26] MEDS ORDERED: DAPA5TAB PO (08:44)
[2023-08-26] MEDS ORDERED: OLAN15TA35 PO (08:44)
== END 2023-08-23 14:27 | disposition home or self-care (01) ==
LOC: PREOP 06:06
PROVIDERS: ATTEND Surgery
DX: Z01.818 Encounter for other preprocedural examination (principal)

== ENCOUNTER 2023-09-03 08:10 | Day surgery (SDC) | payer MEDICARE, OTHER ==
[~2023-09-03] VITALS: Ht 160 cm; Wt 77.6 kg
[~2023-09-03 08:10] MED LIST: DAPA5TAB PO; DIVA-21 PO; DIVA250T PO; FLUO40CA PO; LEVO25CA4 PO; MELA1TAB27 PO; NAPR500T8 PO; OLAN15TA35 PO; ONDA-105 PO
--- NOTE | 2023-09-03 08:22 | Progress Note-Pre Operative ---
Pre-Operative Progress Note Date H&P Reviewed: Sep 03, 2023 Time H&P Reviewed: 08:22 History & Physical: H&P Reviewed, Patient Examed, No changes noted Pre-Operative Diagnosis: +cologBENEDICTO Dietz DO Sep 03, 2023 08:22
[2023-09-03 08:25] VITALS: BP 156/82
[2023-09-03] MEDS: LACTATED RINGERS 1,000 ML 1,000 ML IV STA (09:10)
[2023-09-03 10:25] VITALS: BP 87/44
--- NOTE | 2023-09-03 10:25 | Progress Note-Post Operative ---
Post-Operative Progess Note Surgeon (s)/Industrial Machine Assembler (s) Surgeon BENEDICTO LABOY DO Industrial Machine Assembler: n/a Pre-Operative Diagnosis +cologuard Post-Operative Diagnosis Colon polyps, mucosal change of rectum Procedure & Operative Findings Date of Procedure 09/03/23 Procedure Performed/Findings Colonoscopy with hot bx polypectomy x2, cold bx's rectum x2 Anesthesia Type per ACCOUNT INSTALLATION SPECIALIST Estimated Blood Loss Estimated blood loss (mL): scant Specimens/Packing Specimens Removed Colon polyps, rectum BENEDICTO LABOY DO Sep 03, 2023 10:25
--- NOTE | 2023-09-03 10:26 | Discharge Inst-Simple/Standard ---
Discharge Inst-Standard Patient Instructions/Follow Up Plan of Care/Instructions/FU: Kina 2 weeks Activity as Tolerated: Yes Discharge Diet: Regular Diet BENEDICTO LABOY DO Sep 03, 2023 10:26
[2023-09-03 10:30] VITALS: BP 100/47
[2023-09-03 11:14] VITALS: BP 100/47
--- NOTE | 2023-09-03 12:35 | Anesthesia-General Post-Op ---
MAC Patient Condition Mental Status/LOC: Same as Preop Cardiovascular: Satisfactory Nausea/Vomiting: Absent Respiratory: Satisfactory Pain: Controlled Complications: Absent Post Op Complications Complications None Follow Up Care/Instructions Patient Instructions None needed. Anesthesiology Discharge Order Discharge Order Patient is doing well, no complaints, stable vital signs, no apparent adverse anesthesia problems. No complications reported per nursing. MOIRA SHEN CRNA Sep 03, 2023 12:35
--- NOTE | 2023-09-03 16:31 | OPERATIVE REPORT ---
DATE OF SERVICE: 09/03/2023 PREOPERATIVE DIAGNOSIS: Positive Cologuard. POSTOPERATIVE DIAGNOSES: Colon polyps and mucosal change of rectum. PROCEDURE: Colonoscopy with hot biopsy polypectomy x2 and cold biopsies of the rectum x2. SURGEON: Benedicto Castanon DO ANESTHESIA: Per DIRECTOR CREDIT RISK. ESTIMATED BLOOD LOSS: Scant. COMPLICATIONS: None. INDICATIONS: The patient is a 73-year-old female with positive Cologuard. She understands risks and benefits of procedure and wished to proceed. Consent was signed in chart. DESCRIPTION OF PROCEDURE: The patient was taken to endoscopy suite, placed in left lateral recumbent position. Timeout was performed. Digital rectal exam was performed. No palpable polyps, masses or ulcerations. Scope was inserted in the rectum and advanced all the way to the cecum with minimal difficulty. Prep was adequate. Scope was slowly retracted back. No polyps, masses or ulcerations in the cecum, ascending, transverse and descending colon. Sigmoid colon had 2 small polyps, which hot biopsy polypectomy was performed. Scope was then continuously retracted back in the rectum where there was mucosal change in the distal portion of the rectum. Couple of cold biopsies of this area was obtained. Scope was retroflexed noting no other pathology. Scope was returned to its normal position, slowly withdrawn until completely removed. The patient tolerated the procedure well without any complications, taken to recovery room in stable condition. RECOMMENDATIONS: The patient will follow up on pathology in a couple of weeks. We would consider repeating colonoscopy in 5 years if benefits outweigh the risk. Further recommendation pending biopsy results. Job ID: [id number] DocumentID: [id number] Dictated Date: 09/03/2023 10:25:59 Lorry Weigher Date: 09/03/2023 16:30:00 Dictated By: BENEDICTO CASTANON DO
== END 2023-09-03 11:14 | disposition home or self-care (01) ==
LOC: ENDO 08:10
PROVIDERS: ATTEND Surgery
DX: K63.5 Polyp of colon (principal); K62.6 Ulcer of anus and rectum; K62.89 Other specified diseases of anus and rectum; R19.5 Other fecal abnormalities; R15.9 Full incontinence of feces; R32 Unspecified urinary incontinence